=== PATIENT | male | born 1940 | race Caucasian/White ===

== ENCOUNTER → 2016-08-21 | Outpatient (CLI) | payer OTHER ==
[~2016-08-21] MED LIST: ASPI81TA28 PO; ATOR10TA82 PO; CHOL1000 PO; CYAN10005 PO; FLUT0.15; INSDGI SC; LSN25 PO; METF1TAB53 PO; MULT-506 PO; OMEP20TA PO
--- NOTE | 2016-08-21 13:12 | DIAGNOSTIC IMAGING REPORT ---
CT HEAD WITHOUT CONTRAST (CT) CLINICAL HISTORY: DIZZINESS,HEADACHES COMPARISON STUDY: No previous studies for comparison. TECHNIQUE: Axial CT of the brain is performed from the vertex to the skull base. IV contrast was not administered for this examination. CT DOSE: 638.56 mGycm FINDINGS: No intra or extra-axial mass lesions are visualized. There is no CT evidence of acute cortical infarction. There is no evidence of midline shift. There is no acute hemorrhage. No calvarial fractures are visualized. There are minimal white matter hypodensities likely on a small vessel basis. There is no evidence of pathologic ventricular dilatation. There is minor right maxilla sinus dependent mucosal thickening. IMPRESSION: No acute intracranial findings Electronically signed by: Juan Sanchez M.D. 08/21/2016 1:10 PM Dictated Date/Time: 08/21/2016 1:09 PM
== END | disposition home or self-care (01) ==
LOC: C.CTS 12:51
PROVIDERS: ATTEND Family Medicine
DX: R42 Dizziness and giddiness (principal); R51 Headache

== ENCOUNTER → 2016-08-28 | Outpatient (CLI) | payer OTHER ==
--- NOTE | 2016-08-28 07:36 | DIAGNOSTIC IMAGING REPORT ---
(BARIUM SWALLOW) ESOPHAGUS CLINICAL HISTORY: LUMP IN THROATdysphagia COMPARISON STUDY: None FLUOROSCOPY TIME: 1.2 minutes. FINDINGS: Patient initiated swallow function well. No evidence for aspiration. Trace penetration. Mild esophageal spasm. There are small hilar hernia. Mild gastroesophageal reflux. Patient ingested the barium tablet easily which passed easily to the stomach. IMPRESSION: 1. Mild esophageal spasm/dysmotility. 2. Small hiatal hernia. 3. Mild reflux. 4. Trace penetration with no evidence for aspiration. Electronically signed by: Fred Han M.D. 08/28/2016 7:35 AM Dictated Date/Time: 08/28/2016 7:33 AM
== END | disposition home or self-care (01) ==
LOC: C.RAD 07:01
PROVIDERS: ATTEND Family Medicine
DX: R22.1 Localized swelling, mass and lump, neck (principal); R13.10 Dysphagia, unspecified; K22.4 Dyskinesia of esophagus; K44.9 Diaphragmatic hernia without obstruction or gangrene; K21.9 Gastro-esophageal reflux disease without esophagitis

== ENCOUNTER → 2016-09-08 | Outpatient (CLI) | payer OTHER ==
[~2016-09-08] MED LIST changes: -ATOR10TA82 PO; +ATOR10TA88 PO
--- NOTE | 2016-09-08 10:38 | DIAGNOSTIC IMAGING REPORT ---
CHEST 2 VIEWS ROUTINE CLINICAL HISTORY: R05 COUGH COMPARISON STUDY: No previous studies for comparison. FINDINGS: The cardiac and mediastinal contours are normal. There is no evidence of focal pulmonary consolidation. There is no evidence of failure. No pleural effusions are visualized.[ IMPRESSION: No active disease in the chest. Electronically signed by: Juan Sanchez M.D. 09/08/2016 10:37 AM Dictated Date/Time: 09/08/2016 10:36 AM
== END | disposition home or self-care (01) ==
LOC: C.RAD1850 10:20
PROVIDERS: ATTEND Family Medicine
DX: R05 Cough (principal)

== ENCOUNTER → 2017-06-26 | Outpatient (CLI) | payer OTHER ==
[~2017-06-26] MED LIST changes: +ATOR10TA82 PO; -ATOR10TA88 PO; -OMEP20TA PO
--- NOTE | 2017-06-26 09:09 | DIAGNOSTIC IMAGING REPORT ---
L HAND MIN 3 VIEWS ROUTINE CLINICAL HISTORY: 76 years-old Male presenting with LEFT HAND PAIN, left second MCP joint pain. TECHNIQUE: Frontal, oblique, and lateral views of the left hand were obtained. COMPARISON: None. FINDINGS: The second metacarpophalangeal joint is normal appearing. No acute fracture or malalignment. No advanced degenerative change. No radiographic soft tissue abnormality. IMPRESSION: No acute osseous injury. Electronically signed by: Angelito Velasquez M.D. 06/26/2017 9:08 AM Dictated Date/Time: 06/26/2017 9:06 AM
== END | disposition home or self-care (01) ==
LOC: C.RAD1850 08:44
PROVIDERS: ATTEND Family Medicine
DX: M79.642 Pain in left hand (principal)

== ENCOUNTER → 2017-07-22 | Outpatient (CLI) | payer OTHER ==
--- NOTE | 2017-07-22 11:38 | DIAGNOSTIC IMAGING REPORT ---
R FOOT MIN 3 VIEWS ROUTINE CLINICAL HISTORY: SESAMOIDITIS RIGHT FOOT PAIN COMPARISON: None. DISCUSSION: No acute fractures or dislocations are visualized. There is a small Achilles insertional spur. There are moderate arthritic changes the level the first metatarsal phalangeal joint. There are no erosive or destructive changes. 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 No acute fractures. Electronically signed by: Juan Sanchez M.D. 07/22/2017 11:37 AM Dictated Date/Time: 07/22/2017 11:36 AM
== END | disposition home or self-care (01) ==
LOC: C.RAD1850 10:20
PROVIDERS: ATTEND Family Medicine
DX: M25.871 Other specified joint disorders, right ankle and foot (principal)